=== PATIENT | male | born 1985 | race Caucasian/White ===

== ENCOUNTER → 2024-06-13 | Day surgery (SDC) | payer OTHER ==
[~2024-06-13] MED LIST: FENTANYL CITRATE/PF 100MCG/2 ML INJ ONE; LACTATED RINGER'S 1,000 ML ONE; LIDOCAINE HCL 2% LOCAL INJ 5 ML SDV VIAL INJ ONE; PROPOFOL IV EMULSION 10 MG/ML 20 ML VIAL ONE; PROPOFOL IV EMULSION 10 MG/ML 50 ML VIAL IV ONE
[2024-06-13 09:34] VITALS: TEMP 97
[2024-06-13 10:00] VITALS: BP 109/70; PULSE 71; RESP 18; O2SAT 99
== END | disposition home or self-care (01) ==
LOC: OR 05:00
PROVIDERS: ATTEND Internal Medicine Gastroenterology
DX: R19.7 Diarrhea, unspecified (principal); D12.4 Benign neoplasm of descending colon; K63.5 Polyp of colon; Z87.19 Personal history of other diseases of the digestive system; K62.5 Hemorrhage of anus and rectum; K64.8 Other hemorrhoids; R10.30 Lower abdominal pain, unspecified; K21.9 Gastro-esophageal reflux disease without esophagitis; F17.290 Nicotine dependence, other tobacco product, uncomplicated; F90.9 Attention-deficit hyperactivity disorder, unspecified type
CPT/HCPCS: 45380; 45384; J2003; J2704 ×2; J7121